=== PATIENT | male | born 1950 | race Caucasian/White ===

== ENCOUNTER 2019-05-04 12:37 | Outpatient (CLI) | payer OTHER, SELFPAY ==
--- NOTE | 2019-05-04 09:25 | DI.RAD_ITS ---
SYMPTOM/DIAGNOSIS: RT KNEE PAIN RIGHT KNEE: Three weight bearing views were performed. The joint spaces are well maintained. There is minimal periarticular spurring. No joint effusion is seen. IMPRESSION: Negative right knee.
== END 2019-05-04 12:57 ==
PROVIDERS: PCP Internal Medicine; Referring Provider Internal Medicine; Visit Provider Student in an Organized Health Care Education/Training Program
DX: M25.561 Pain in right knee (principal); M17.12 Unilateral primary osteoarthritis, left knee
CPT/HCPCS: 99203; 73564

== ENCOUNTER 2019-11-25 01:39 | Outpatient (CLI) | payer OTHER, SELFPAY ==
--- NOTE | 2019-11-25 | DI.RAD_ITS ---
EXAM: XR ELBOW RT COMPLETE INDICATION: RT ELBOW PAIN, M25.521, OLECRANON BURSITIS, M70.21. COMPARISON: No exams were available for comparison TECHNIQUE: 2D digital imaging was performed. FINDINGS: Lateral view is mildly obliqued. There is mild soft tissue swelling over the olecranon. No fracture or joint effusion is seen. There are mild degenerative changes at the humeral ulnar joint. No soft tissue calcifications are seen. IMPRESSION: Mild degenerative changes and posterior soft tissue swelling. DATA REPOSITORY: RADIATION DOSE DELIVERED:
== END 2019-11-25 01:59 ==
PROVIDERS: PCP Internal Medicine; Visit Provider Internal Medicine
DX: M25.521 Pain in right elbow (principal); M70.21 Olecranon bursitis, right elbow; M79.89 Other specified soft tissue disorders
CPT/HCPCS: 73080

== ENCOUNTER 2020-05-06 14:00 | Outpatient (REF) | payer OTHER, SELFPAY ==
[2020-05-09 09:40] LABS: PSA, Screening 3.9 ng/mL (0.0-4.5)
== END 2020-05-06 14:20 ==
LOC: NCHCN 14:00
PROVIDERS: PCP Internal Medicine; Visit Provider Internal Medicine
DX: Z12.5 Encounter for screening for malignant neoplasm of prostate (principal)
CPT/HCPCS: 84153

== ENCOUNTER 2020-05-16 01:07 | Outpatient (CLI) | payer OTHER, SELFPAY ==
--- NOTE | 2020-05-16 09:12 | DI.CT_ITS ---
EXAM: CT CHEST WO CLINICAL HISTORY: F/U PULMONARY NODULE TECHNIQUE: Imaging Protocol: Axial computed tomography images with coronal and sagittal reformatted images were created and reviewed CONTRAST MATERIAL: Intravenous: Omnipaque 350 Contrast volume:structured data in ml. COMPARISON: CT CHEST WITH CONTRAST from 04/14/2015 FINDINGS: Tracheobronchial tree: Patent where visualized. Mediastinum and Martha: No dominant adenopathy or fluid collection. Pulmonary parenchyma: No consolidation. There are 2 small nodules seen laterally in the right lower lobe which appear unchanged in size. There are no new or suspicious nodules. Pleura: No effusion or pneumothorax. Heart: The heart is not dilated. No coronary artery calcifications are seen. Aorta: Thoracic aorta non-dilated. Upper abdomen: Unremarkable. Lymph nodes: Within normal limits. Bones: Mild degenerative changes. Soft tissues: Unremarkable. IMPRESSION: Stable benign appearing right lower lobe nodules. RADIATION DOSE DELIVERED: 474.11mGy.cm Total DLP DATA REPOSITORY: All CT scans at this facility are submitted to the National Radiology Data Registry (NRDR) Dose Index Registry (DIR) with the [employer] ([employer]). RADIATION OPTIMIZATION: All CT scans at this facility use at least one of these dose optimization te chniques: automated exposure control; mA and/or kV adjustment per patient size (includes targeted exa ms where dose is matched to clinical indication); or iterative reconstruction.
== END 2020-05-16 01:27 ==
PROVIDERS: PCP Internal Medicine; Visit Provider Internal Medicine
DX: R91.8 Other nonspecific abnormal finding of lung field (principal)
CPT/HCPCS: 71250

== ENCOUNTER 2021-06-26 16:16 | Outpatient (REF) | payer OTHER, SELFPAY ==
[2021-06-26 21:08] LABS: Abs Immature Grans 0.01 10^3/uL (0.0-0.06); Absolute Basophil Count 0.05 10^3/uL (0.0-0.2); Absolute Lymphocyte Count 1.48 10^3/uL (1.2-3.4); Absolute Monocyte Count 0.41 10^3/uL (0.1-0.8); Absolute Neutrophil Count 2.53 10^3/uL (1.2-6.7); Basophils % 1.1; Eosinophils % 2.2; HCT 39.8 % (40.0-50.0); HGB 13.9 g/dL (13.5-17.5); Immature Grans % 0.2; Lymphocytes % 32.3; MCH 32.9 pg (27.0-33.0); MCHC 34.9 % (32.0-36.0); MCV 94.3 fL (80-95); MPV 10.7 fL (8.0-11.0); Neutrophils % 55.2; Nucleated RBC 0 %; Platelet Count 283 10^3/uL (130-400); RBC 4.22 10^6/uL (4.36-5.78); RDW 13.3 % (11.8-14.1); RDW-SD 45.5 fL; WBC 4.58 10^3/uL (4.4-10.8)
[2021-06-26 21:34] LABS: Prothrombin Time 10.1 sec (9.3-11.0)
[2021-06-26 21:40] LABS: ALT 425 U/L (16-63); AST 147 U/L (15-37); Albumin 3.2 g/dL (3.4-5.0); Alkaline Phosphatase 305 U/L (46-116); Anion Gap 6.4 mmol/L (3-11); BUN 20 mg/dL (7-18); Bilirubin, Total 1.9 mg/dL (0.2-1.0); CO2 27.6 mmol/L (21.0-32.0); Calcium 8.9 mg/dL (8.5-10.1); Chloride 103 mmol/L (98-107); GGT 251 U/L (15-85); Glucose 140 mg/dL (74-106); LDH 169 U/L (85-227); Potassium 4.1 mmol/L (3.5-5.1); Sodium 137 mmol/L (136-145); Total Protein 6.6 g/dL (6.4-8.2)
[2021-06-28 09:40] LABS: HBs Antibody, Quant <3.1 mIU/mL (See Note); Hepatitis B Surface Ab Negative (See Note)
[2021-06-28 10:29] LABS: Hepatitis C Ab w Rflx HCV PCR Negative (Negative)
[2021-06-28 11:32] LABS: Hep A Total Ab w Rflx IgM Positive (Negative)
[2021-06-28 12:33] LABS: Hep A Antibody IgM Negative (Negative)
== END 2021-06-26 16:17 | disposition home or self-care (01) ==
LOC: NCHCN 16:16
PROVIDERS: PCP Internal Medicine; Visit Provider Family Medicine
DX: K75.89 Other specified inflammatory liver diseases (principal)
CPT/HCPCS: 80053; 86706; 86709; 86803; 82977; 83615; 85025; 85610

== ENCOUNTER 2021-07-31 08:51 | Outpatient (REF) | payer OTHER, SELFPAY ==
[2021-07-31 14:33] LABS: ALT 55 U/L (16-63); AST 31 U/L (15-37); Albumin 3.7 g/dL (3.4-5.0); Alkaline Phosphatase 113 U/L (46-116); Bilirubin, Direct 0.4 mg/dL (0.0-0.2); Bilirubin, Total 0.9 mg/dL (0.2-1.0); Total Protein 6.7 g/dL (6.4-8.2)
== END 2021-07-31 08:52 | disposition home or self-care (01) ==
LOC: NCHCN 08:51
PROVIDERS: PCP Internal Medicine; Visit Provider Family Medicine
DX: K75.9 Inflammatory liver disease, unspecified (principal)
CPT/HCPCS: 80076

== ENCOUNTER 2022-07-03 11:23 | Outpatient (REF) | payer MEDICARE, SELFPAY ==
[2022-07-03 15:55] LABS: ALT 53 U/L (16-63); AST 29 U/L (15-37); Albumin 3.7 g/dL (3.4-5.0); Alkaline Phosphatase 87 U/L (46-116); Anion Gap 9.6 mmol/L (3-11); BUN 24 mg/dL (7-18); Bilirubin, Total 0.5 mg/dL (0.2-1.0); CO2 25.4 mmol/L (21.0-32.0); CREATININE 0.9 mg/dL (0.70-1.30); Chloride 104 mmol/L (98-107); Estimated GFR 91.88 (mL/min/1.73m2); Glucose 106 mg/dL (74-106); Sodium 139 mmol/L (136-145); Total Protein 6.8 g/dL (6.4-8.2)
== END 2022-07-03 11:24 | disposition home or self-care (01) ==
LOC: NCHCN 11:23
PROVIDERS: PCP Internal Medicine; Visit Provider Family Medicine
DX: K75.89 Other specified inflammatory liver diseases (principal)
CPT/HCPCS: 80053